=== PATIENT | female | born 1940 | race Caucasian/White ===

== ENCOUNTER → 2021-05-07 12:41 | Outpatient (CLI) | payer MEDICARE, OTHER, SELFPAY ==
--- NOTE | 2021-05-07 13:00 | VDUE_ITS ---
Reason For Study: Pre op testing Right Arm Left Arm Right Cephalic Vein at the wrist measures Left Cephalic Vein at the wrist measures 0.15 x 0.15 cm. 0.13 x 0.13 cm. Right Cephalic Vein in the forearm measures Left Cephalic Vein in the forearm measures 0.17 x 0.17 cm. 0.25 x 0.24 cm. Right Cephalic Vein below antecub measures Left Cephalic Vein below antecub measures 0.11 x 0.11 cm. 0.18 x 0.17 cm. Right Cephalic Vein above antecub measures Left Cephalic below antecube branch, 0.16 x 0.18 x 0.18 cm. 0.16 cm. Right Cephalic below antecube branch, 0.16 x Left Cephalic Vein above antecub measures 0.17 cm. 0.23 x 0.23 cm. Right Cephalic above antecube branch, 0.14 x Left Cephalic Vein at mid bicep measures 0.14 cm. 0.22 x 0.22 cm. Right Cephalic Vein mid bicep measures 0.13 Left Cephalic Vein at the shoulder measures x 0.13 cm. 0.23 x 0.24 cm. Right Cephalic Vein at the shoulder measures Basilic vein at origin measures 0.45 x 0.46 0.14 x 0.14 cm. cm. Right Basilic Vein at the origin measures Basilic vein at bicep measures 0.40 x 0.41 0.50 x 0.49 cm. cm. Right Basilic Vein mid bicep measures 0.51 x Basilic vein above antecub measures 0.48 x 0.52 cm. 0.49 cm. Right Basilic Vein above antecub measures Left Brachial artery measures 0.43 x 0.43 cm 0.46 x 0.49 cm. with a velocity of 117.6 cm/sec. Right Brachial artery measures 0.42 x 0.42 Left Radial artery measures 0.25 x 0.25 cm cm with a velocity of 101.3 cm/sec. with a velocity of 119.5 cm/sec. Right Radial artery measures 0.29 x 0.29 cm with a velocity of 77.1 cm/sec. VL/Saphenous Vein Mapping, Bilat Interpretation Summary Patent and compressible bilateral upper extremity cephalic and basilic veins wi th dimensions as noted. Cephalic vein diameters bilaterally throughout appears small Bilateral upper arm basilic veins appear adequate Bilateral radial and brachial artery diameter and flow appear normal Ordering Physician: Gilles Jules Referring Physician: Nick Ordoñez Performed By: Imani Bailey RVT ?
== END ==
PROVIDERS: PCP Internal Medicine; Referring Provider Surgery; Visit Provider Surgery
DX: Z01.818 Encounter for other preprocedural examination (principal); N18.4 Chronic kidney disease, stage 4 (severe)
CPT/HCPCS: 93970; 93985

== ENCOUNTER 2021-06-25 06:31 | Day surgery (SDC) | payer MEDICARE, OTHER, SELFPAY ==
[2021-06-25] VITALS (9 sets, daily range): BP systolic 137–172; BP diastolic 46–68; PULSE 84–93; RESP 14–18; TEMP 35.8–37.6; O2SAT 91–140; BMI 26.2
--- NOTE | 2021-06-25 06:35 | PCM.HP.BLA ---
History and Physical Date of Admission: 06/25/21 Intake Visit Reasons: FISTULA, VM 05/07 Chief Complaint: fistula consult Healthcare Insurance Sales Agent Required: No Is patient in pain?: No Allergies atorvastatin [From Lipitor] Allergy (Mild, Verified 06/16/21 14:58) Other Penicillins Allergy (Mild, Verified 06/16/21 14:58) Rash sacubitril [From Entresto] Allergy (Mild, Verified 06/16/21 14:58) Other Sulfa (Sulfonamide Antibiotics) Allergy (Mild, Verified 06/16/21 14:58) Vomiting valsartan [From Entresto] Allergy (Mild, Verified 06/16/21 14:58) Other Medications allopurinol 100 mg tablet tablet PO 06/16/21 [History Confirmed 06/16/21] aspirin 81 mg tablet,delayed release 81 mg PO DAILY 06/16/21 [History Confirmed 06/16/21] citalopram 20 mg tablet tablet PO 06/16/21 [History Confirmed 06/16/21] clotrimazole-betamethasone 1 %-0.05 % topical cream gm TOPICAL 06/16/21 [History Confirmed 06/16/21] ergocalciferol (vitamin D2) 1,250 mcg (50,000 unit) capsule cap PO 06/16/21 [History Confirmed 06/16/21] gabapentin 300 mg capsule cap PO 06/16/21 [History Confirmed 06/16/21] hydralazine 50 mg tablet tablet PO 06/16/21 [History Confirmed 06/16/21] insulin glargine 100 unit/mL subcutaneous solution ml SUBCUT 06/16/21 [History Confirmed 06/16/21] isosorbide mononitrate 60 mg tablet,extended release 24 hr tablet PO 06/16/21 [History Confirmed 06/16/21] loperamide 2 mg capsule cap PO 06/16/21 [History Confirmed 06/16/21] melatonin 10 mg capsule 10 mg PO HS PRN 06/16/21 [History Confirmed 06/16/21] metoprolol succinate 50 mg tablet,extended release 24 hr tablet PO 06/16/21 [History Confirmed 06/16/21] omeprazole 20 mg capsule,delayed release cap PO 06/16/21 [History Confirmed 06/16/21] tramadol 50 mg tablet tablet PO 06/16/21 [History Confirmed 06/16/21] vitamin B complex-vitamin C-folic acid 0.8 mg tablet 1 tab PO DAILY 06/16/21 [History Confirmed 06/16/21] PFSH Medical History Breast cancer Diabetes End stage renal disease Gout Heart disease High cholesterol HTN (hypertension) Surgical History History of ankle surgery History of open heart surgery S/P lumpectomy, right breast Status post replacement of right shoulder joint Social History Smoking Status: Former smoker alcohol intake: never HPI HPI HPI: CLARISSE HA, is a 81 F who presents to the office today for surgical consultation regarding placement of arteriovenous hemodialysis fistula. The patient is referred by and a written copy my surgical consult recommendations will return to him. The patient currently is being dialyzed via tunneled right internal jugular dialysis catheters. She is right arm dominant. She has had previous hospitalizations for heart surgery coronary bypass surgery. May 07, 2021 Reason For Study: Pre op testing Right Arm Left Arm Right Cephalic Vein at the wrist measures Left Cephalic Vein at the wrist measures 0.15 x 0.15 cm. 0.13 x 0.13 cm. Right Cephalic Vein in the forearm measures Left Cephalic Vein in the forearm measures 0.17 x 0.17 cm. 0.25 x 0.24 cm. Right Cephalic Vein below antecub measures Left Cephalic Vein below antecub measures 0.11 x 0.11 cm. 0.18 x 0.17 cm. Right Cephalic Vein above antecub measures Left Cephalic below antecube branch, 0.16 x 0.18 x 0.18 cm. 0 .16 cm. Right Cephalic below antecube branch, 0.16 x Left Cephalic Vein above antecub measures 0.17 cm. 0.23 x 0.23 cm. Right Cephalic above antecube branch, 0.14 x Left Cephalic Vein at mid bicep measures 0.14 cm. 0.22 x 0.22 cm. Right Cephalic Vein mid bicep measures 0.13 Left Cephalic Vein at the shoulder measures x 0.13 cm. 0.23 x 0.24 cm. Right Cephalic Vein at the shoulder measures Basilic vein at origin measures 0.45 x 0.46 0.14 x 0.14 cm. cm. Right Basilic Vein at the origin measures Basilic vein at bicep measures 0.40 x 0.41 0.50 x 0.49 cm. cm. Right Basilic Vein mid bicep measures 0.51 x Basilic vein above antecub measures 0.48 x 0.52 cm. 0.49 cm. Right Basilic Vein above antecub measures Left Brachial artery measures 0.43 x 0.43 cm 0.46 x 0.49 cm. with a velocity of 117.6 cm/sec. Right Brachial artery measures 0.42 x 0.42 Left Radial artery measures 0.25 x 0.25 cm cm with a velocity of 101.3 cm/sec. with a velocity of 119.5 cm/sec. Right Radial artery measures 0.29 x 0.29 cm with a velocity of 77.1 cm/sec. VL/Saphenous Vein Mapping, Bilat Interpretation Summary Patent and compressible bilateral upper extremity cephalic and basilic veins with dimensions as noted. Cephalic vein diameters bilaterally throughout appears small Bilateral upper arm basilic veins appear adequate Bilateral radial and brachial artery diameter and flow appear normal Ordering Physician: Gilles Jules Referring Physician: Nick Ordoñez Performed By: Imani Bailey RVT ? 05/07/21 1456Date Gilles Jules MD ROS General General: Yes breast cancer; No weight change, appetite, fatigue, colon cancer or weakness HEENT HEENT: Yes eye injury and eye surgery; No difficulty swallowing, swollen glands or hoarseness Endo Endocrine: Yes diabetes mellitus; No thyroid disease, thyroid cancer, Hair loss, heat intolerance or cold intolerance Skin Skin: No rash or changing moles Breast Breast: No left breast lump, right breast lump, nipple discharge, breast pain, abnormal mammogram, abnormal US or breast enlargement Musc Musculoskeletal: Yes arthritis and gout; No back problems, rheumatoid arthritis or joint pain Cardio Cardiovascular: Yes pacemaker, heart disease, high blood pressure, heart attack and heart stent; No murmur, atrial fibrillation, palpitations, shortness of breat with exertion or chest pain Psych Psychiatric: No depression, anxiety or hearing voices Resp Respiratory: No shortness of breath, No sleep apnea, No cough, No COPD, No asthma, No emphysema and No wheezing Gastro Gastrointestinal: No abdominal pain, No nausea or vomiting, Yes diarrhea, No constipation, No blood in stool, No acid reflux, No hemorrhoids, No ulcers, No gallbladder problem and No black,tarry stools Jeremias Hematologic: No blood thinners, No blood disorders, No bleeding, Yes anemia and No blood clots Neuro Neurologic: No system reviewed and no additional complaints, except as documented, No as per HPI, No abnormal gait, No abnormal hearing, No abnormal movements, No abnormal speech, No behavioral changes, No burning sensations, No confusion, No convulsions, No disequilibrium, No dizziness, No localized weakness, No frequent falls, No headache(s), No lack of coordination, No loss of vision, No memory loss, Yes numbness, No other visual disturbances, No radicular pain, No restless legs, No sensory deficit, No syncope, Yes tingling, No tremor(s), No weakness and No other Exam Const General: cooperative, healthy appearing and comfortable Nutritional Appearance: average body habitus Orientation: alert and awake [facility] Head: normal to inspection Eyes General: appearance normal, both eyes and all related structures Neck Neck: normal visual inspection Chest Other: Right internal jugular tunneled dialysis catheters in place Resp Effort & Inspection: normal respiratory effort Auscultation: clear to auscultation bilaterally Cardio Rate: regular rate GI Inspection: normal to inspection Palpation: soft Musc Cervical Spine: normal cervical lordosis Skin Other: Multiple areas of ecchymosis Neuro General: patient alert and patient oriented x3 Extrem Other: Left upper extremity diminutive cephalic vein throughout. 3+ left radial pulse 3+ left brachial pulse. Ultrasound inspection demonstrates a patent and compressible left upper arm basilic vein. Psych Thought Content: normal Assessment and Plan Assessment and Plan (1) Chronic kidney disease, stage V: Status: Chronic Plan Details Additional Comments: I recommended the patient a stage I left upper arm brachiobasilic arteriovenous hemodialysis fistula creation. I described the technique, benefit, risk, alternatives. She has had an opportunity to ask and have questions answered. We will schedule and expedite her care. She is aware that a stage II transposition will be additionally required in the future. I appreciate the opportunity of assisting with her surgical care Copy: Dr. Collins Jules M.D., F.A.C.S. I have re-examined the patient. There are no clinical changes since date of exam. Gilles Jules M.D., F.A.C.S.
--- NOTE | 2021-06-25 06:36 | EX.PCM.DISCH ---
Discharge Instructions Procedure Fistula Diet Discharge Diet: Renal Diet Activity Discharge Activity: May Not Drive (for 2-3 days or while taking narcotic pain medications.), May Shower and May Take a Tub Bath (in 5 days.) Lifting Restrictions: 5 pounds Keep extremity elevated above heart level: - (Keep arm elevated above the heart level for 3 days.) Dressing / Incision Call your doctor if your incision/area has: Continuous Slow Oozing, Sudden Increased Bleeding (apply pressure and call your doctor.), Increased Pain/ Swelling, Increased Redness and Foul Smelling Discharge Call your doctor if you observe: Fever of 101 or Higher Suture Line Care: Avoid Pulling/Pushing and Avoid Pinching/Bending Cleanse incision/area with: Keep Dressing Clean & Dry Additional Dressing/Incision Instructions:: Change or remove dressing in one day. May protect with a gauze bandaid. Follow Up Care Please Follow Up With: Gilles Jules MD When: Call [phone] to make an appointment for suture removal and follow up in 1 week. Test Results: Test results from this visit will be discussed in further detail at your follow-up appointment, if applicable. Discharge Plan Admission Attending Provider: Gilles Jules Primary Care Provider: Nick Ordoñez Discharge Orders/Prescriptions Prescriptions: No Action allopurinol 100 mg tablet 100 mg PO DAILY RF: 0 gabapentin 300 mg capsule 300 mg PO QHS RF: 0 ergocalciferol (vitamin D2) 1,250 mcg (50,000 unit) capsule 50,000 unit PO WE RF: 0 omeprazole 20 mg capsule,delayed release(DR/EC) 20 mg PO 0800 RF: 0 hydralazine 50 mg tablet 50 mg PO TID RF: 0 isosorbide mononitrate 60 mg tablet extended release 24 hr 60 mg PO DAILY RF: 0 citalopram 20 mg tablet 20 mg PO DAILY RF: 0 metoprolol succinate 50 mg tablet extended release 24 hr 50 mg PO 0800 RF: 0 tramadol 50 mg tablet 50 mg PO QHS RF: 0 loperamide 2 mg capsule 2 mg PO PRN PRN (Reason: Diarrhea) RF: 0 Lantus U-100 Insulin 100 unit/mL solution 20 unit subcut QHS RF: 0 melatonin 10 mg capsule 10 mg PO HS RF: 0 Cheli-Jud 0.8 mg tablet 1 tab PO DAILY RF: 0 aspirin 81 mg tablet,delayed release (DR/EC) 81 mg PO QODAY RF: 0 acetaminophen 325 mg Tablet 325 mg PO BID RF: 0 amlodipine [Norvasc] 5 mg Tablet 5 mg PO DAILY RF: 0 ascorbic acid (vitamin C) [Vitamin C] 500 mg Tablet 500 mg PO TID RF: 0 magnesium 250 mg Tablet 250 mg PO BID RF: 0 [place] Caps 1 mg Capsule 1 cap PO 0800 RF: 0 insulin lispro [Humalog Pen] 100 unit/mL Insulin Pen 5 unit SUBCUT TID RF: 0 rosuvastatin 40 mg Tablet 40 mg PO QHS RF: 0 Airborne Gummy 250-11.66 mg Tablet,Chewable 1 tab PO 0800 RF: 0
[2021-06-25] MEDS: 0.9% Normal Saline 1,000 ML 15 ML IV (07:24)
[2021-06-25 07:36] LABS: Hematocrit 42.5 % (37-47); Hemoglobin 12.5 g/dL (12.0-15.0); Mean Corp Hgb Conc 29.4 g/dL (32-36); Mean Corpuscular Volume 101.9 fL (81-99); Mean Platelet Vol. 9.3 fl (6.2-12.0); POSITIVE MORPHOLOGY YES; Platelet Count 197 K/mm3 (150-450); RBC Distribution Width CV 17.9 % (11.6-14.6); RBC Distribution Width SD 67.6 fl (35.1-43.9); Red Blood Count 4.17 M/mm3 (4.2-5.4)
[2021-06-25 07:41] LABS: Bedside Glucose 99 mg/dL (70-110)
[2021-06-25 07:41] LABS: Scan Indicated on CBC? Y/N YES- FLAGS NOTED
[2021-06-25 08:00] LABS: Differential Comment SCANNED
[2021-06-25] MEDS: Lidocaine 1% (20 ml mdv) 20 ML Vial (09:14)
[2021-06-25] MEDS: Bupivacaine Mpf 0.5% 30 ML VIAL (09:14)
--- NOTE | 2021-06-25 09:14 | PCM.OPRPT ---
Problems Associated Problem List Diagnoses (1) Chronic kidney disease, stage V: Report of Operation Date of Procedure: 06/25/21 Pre-Operative Diagnosis: Stage V chronic renal insufficiency Post-Operative Diagnosis: Same Surgery/Procedure Performed:: Stage I left upper extremity basilic vein to brachial artery arteriovenous hemodialysis fistula creation Description of Surgical Findings:: Timeout informed consent was obtained. 81-year-old female was taken to the operating placed upon the table underwent monitored anesthesia care. Clean procedure. The left upper extremity sterilely prepped and draped. Ultrasound mapping had been performed. 1% lidocaine mixed 50-50 with 0.5% Marcaine was used as a local anesthetic. A total of 9 cc was used. Local was instilled an oblique incision was made in the left antecubital space sharp and blunt dissection was used to identify the basilic vein it was dissected free sharp and blunt dissection was used to identify the brachial artery circumferential control was obtained. The patient received 6000 units of heparin intravenously. The basilic vein was ligated distally with 2 hemoclips. The vein was spatulated. Peripheral vascular clamps were placed on the brachial artery and 11 blade was used to make an arteriotomy which was extended with Miguel scissors. A end-to-side venous to arterial anastomosis was created with a running 7-0 Prolene. A couple repair sutures after the patient required of the 7-0 Prolene. There was wonderful flow noted. The patient was noted to have a very viable hand. It is of note that there was a branch of the basilic vein which I did tie off with a 4-0 Vicryl ligature to improve antegrade flow in the vein. The wound was closed with a deep layer of interrupted 3-0 Vicryl. Skin edges approximated running septic or 4-0 Monocryl. Steri-Strips Telfa OpSite dressings applied. Sponge and instrument and needle counts were reported the surgeon to be correct. Specimens none. Drains none. Blood loss minimal. The patient was taken to the recovery area in satisfactory addition without apparent complication Gilles Jules M.D., F.A.C.S. Surgeon: Gilles Jules Type of Anesthesia: Local MAC Anesthesiologist: Shakeel Tamez
[2021-06-25] MEDS: Heparin Injection (Vial) 5,000 UNIT/ML VIAL 5000 UNIT (09:20)
== END 2021-06-25 23:59 | disposition home or self-care (01) ==
LOC: SDC 06:31 → AC 06:32
PROVIDERS: PCP Internal Medicine; Referring Provider Internal Medicine; Visit Provider Surgery
DX: I12.0 Hypertensive chronic kidney disease with stage 5 chronic kidney disease or end stage renal disease (principal); Z99.2 Dependence on renal dialysis; J44.9 Chronic obstructive pulmonary disease, unspecified; I27.20 Pulmonary hypertension, unspecified; E11.22 Type 2 diabetes mellitus with diabetic chronic kidney disease; N18.5 Chronic kidney disease, stage 5; Z79.4 Long term (current) use of insulin; D63.1 Anemia in chronic kidney disease; I51.7 Cardiomegaly; I25.2 Old myocardial infarction; E78.00 Pure hypercholesterolemia, unspecified; K21.9 Gastro-esophageal reflux disease without esophagitis; Z95.1 Presence of aortocoronary bypass graft; Z79.82 Long term (current) use of aspirin; Z86.73 Personal history of transient ischemic attack (TIA), and cerebral infarction without residual deficits; Z79.899 Other long term (current) drug therapy; Z87.891 Personal history of nicotine dependence
CPT/HCPCS: 01844; 82962; 85027; 87426; J7030; J2405

== ENCOUNTER 2021-07-14 13:16 | Outpatient (CLI) | payer MEDICARE, OTHER, SELFPAY ==
[2021-07-14 13:47] LABS: Absolute Lymphocyte Count 0.52 X10^3/uL (0.83-4.51); Absolute Neutrophil Count 9.5 X10^3/uL (2.0-7.7); Basophil# 0.03 X10^3/uL; Basophil% 0.3 % (0-1); Eosinophil# 0.43 X10^3/uL; Eosinophils% 3.8 % (0-5); Hematocrit 20.8 % (37-47); Hemoglobin 6.1 g/dL (12.0-15.0); Lymphocyte # 0.52 X10^3/ul (0.83-4.51); Lymphocyte % 4.6 % (19-41); Mean Corp Hgb Conc 29.3 g/dL (32-36); Mean Corpuscular Hgb 31.3 pg (27.0-32.0); Mean Corpuscular Volume 106.7 fL (81-99); Mean Platelet Vol. 9.4 fl (6.2-12.0); Monocyte# 0.83 X10^3/uL; Monocyte% 7.3 % (0-10); NRBC Flagged by Analyzer 0 % (0-5); Neutrophil # 9.52 X10^3/uL (2.7-7.7); Neutrophil % 83.6 % (47-70); POSITIVE DIFFERENTIAL YES; POSITIVE MORPHOLOGY YES; Platelet Count 173 K/mm3 (150-450); RBC Distribution Width CV 22.6 % (11.6-14.6); RBC Distribution Width SD 88.2 fl (35.1-43.9); Red Blood Count 1.95 M/mm3 (4.2-5.4); White Blood Count 11.4 K/mm3 (4.4-11.0)
[2021-07-14 13:48] LABS: Differential Indicated SCAN CRITERIA MET
[2021-07-14 14:33] LABS: Anisocytosis 1+
== END 2021-07-14 23:59 | disposition short-term general hospital (02) ==
LOC: PAVLAB 13:18
PROVIDERS: Physician Assistant; PCP Internal Medicine; Referring Provider Surgery; Visit Provider Surgery
DX: N18.5 Chronic kidney disease, stage 5 (principal)
CPT/HCPCS: 36415; 85025

== ENCOUNTER 2021-08-04 13:04 | Outpatient (CLI) | payer MEDICARE, OTHER, SELFPAY ==
--- NOTE | 2021-08-04 13:45 | RAD_ITS ---
STUDY: X-RAY - PELVIS AND RIGHT HIP REASON FOR EXAM: Female, 81 years old. ACUTE PAIN following a fall. TECHNIQUE: 3 views of the pelvis and hip. COMPARISON: None. FINDINGS: Moderate amount of fecal material is seen in the colon. There are atherosclerotic vascular calcifications of the pelvic arteries. Normal bilateral iliac wings, sacroiliac joints and visualized sacrum. Normal bilateral superior and inferior pubic rami. Normal pubic symphysis. Normal bilateral ischial tuberosities. Normal visualized femoral head. Normal acetabulum. There is mild articular joint space narrowing of the hip. RAD/HIP, UNI W/ Pelvis 2-3 Views IMPRESSION: Degenerative changes of the right hip joint. No acute fracture is seen. Electronically Signed: Kirk Noe MD at 14:34 EST ,
== END 2021-08-04 23:59 | disposition home or self-care (01) ==
PROVIDERS: PCP Internal Medicine; Referring Provider Surgery; Visit Provider Surgery
DX: M25.551 Pain in right hip (principal)
CPT/HCPCS: 73502

== ENCOUNTER 2021-08-15 09:41 | Day surgery (SDC) | payer MEDICARE, OTHER, SELFPAY ==
--- NOTE | 2021-08-15 | COLBX_PTH ---
PATIENT: CLARISSE HA LOC: EN U#:[id number] AGE/SX: 81/F ROOM: RE08/15/[address]: Dr. Gilles Jules MD : 1940 BED: DIS: 08/15/2021 SPEC #: [id number] RECD: 08/15/21 13:15 STATUS: BRO KIDD #: [id number] RENALDO: 08/15/21 00:[address]: Gilles Jules DEPT: SURGICAL PATHOLOGY RECD BY: Dago Jacobson ENTERED: 08/15/21 13:17 SP TYPE: COLON BX OTHR DR: Dr. Nick Ordoñez MD Tissues: A - Duodenum, NOS B - Gastric mucous membrane C - Stomach, NOS D - Esophageal mucous membrane E - Transverse colon F - Descending colon G - Sigmoid colon biopsy H - Rectum, NOS Procedures: Special Stain Group II Surgery Specimen Level IV Alcian Blue/PAS (control) HEADER OPERATION: Colonoscopy, EGD ([facility] [place]) PRE-OP DIAGNOSIS: Chronic anemia TISSUE SUBMITTED: A - Duodenum biopsy, B - Antrum biopsy for H. pylori and path, C - Biopsy greater curvature of stomach, D - Distal esophagus biopsy, E - Proximal transverse polyp, F - Descending colon polyp, G - Proximal sigmoid polyp, H - Rectum biopsy MICROSCOPIC DIAGNOSIS A. Duodenum, biopsy: A fragment of duodenal mucosa, no pathologic diagnosis. B. Antrum biopsy: Mild gastritis. See microscopic description and comment. C. Greater curvature of stomach, biopsy: Minimal gastritis. See microscopic description. D. Distal esophagus, biopsy: A fragment of gastroesophageal mucosa with moderate chronic inflammation. Intestinal metaplasia (goblet cell metaplasia) not identified. See comment. E. Proximal transverse colon polyp, biopsy: Fragments of tubular adenoma. F. Descending colon polyp, biopsy: Fragments of fecal material. See comment. G. Proximal sigmoid polyp, biopsy: Fragments of tubular adenoma. H. Rectum, biopsy: Tubular adenoma. SJ:fred 08/18/2021 COMMENT B. The results of immunohistochemistry for Helicobacter pylori will be reported separately ([id number]). D. Alcian blue/PAS stain with matched control is used in the evaluation of the specimen. F. Colonic mucosal tissue is not identified. MICROSCOPIC DESCRIPTION Slides are reviewed. B. The specimen shows fragments of gastric mucosa with chronic inflammatory cell infiltrates in the lamina propria consisting of lymphocytes and plasma cells, consistent with mild chronic gastritis. C. The specimen shows fragments of gastric mucosa with chronic inflammatory cell infiltrates in the lamina propria consisting of lymphocytes and plasma cells, consistent with minimal chronic gastritis. GROSS DESCRIPTION A - Received in fixative is one container labeled with the patient's name and designated biopsy duodenum. The specimen consists of one irregular fragment of light estrada soft tissue that measures 0.3 x 0.3 x 0.1 cm. The specimen is totally submitted in one cassette. B - Received in fixative is one container labeled with the patient's name and designated biopsy antrum. The specimen consists of one irregular fragment of light estrada soft tissue that measures 0.3 x 0.3 x 0.1 cm. The specimen is totally submitted in one cassette. C - Received in fixative is one container labeled with the patient's name and designated biopsy greater curvature of stomach. The specimen consists of one irregular fragment of light estrada soft tissue that measures 0.3 x 0.3 x 0.1 cm. The specimen is totally submitted in one cassette. D - Received in fixative is one container labeled with the patient's name and designated distal esophagus. The specimen consists of one irregular fragment of light estrada soft tissue that measures 0.4 x 0.3 x 0.1 cm. The specimen is totally submitted in one cassette. E - Received in fixative is one container labeled with the patient's name and designated proximal transverse polyp. The specimen consists of two irregular fragments of light estrada soft tissue that in aggregate measure 0.8 x 0.3 x 0.1 cm. The specimen is totally submitted in one cassette. F - Received in fixative is one container labeled with the patient's name and designated descending colon polyp. The specimen consists of multiple irregular fragments consisting of fecal material mixed with possible fragments of soft tissue that in aggregate measure 1.5 x 0.2 x 0.1 cm. The specimen is totally submitted in one cassette. G - Received in fixative is one container labeled with the patient's name and designated proximal sigmoid polyp. The specimen consists of two irregular fragments of light estrada soft tissue that in aggregate measure 1 x 0.4 x 0.1 cm. The specimen is totally submitted in one cassette. H - Received in fixative is one container labeled with the patient's name and designated rectum polyp. The specimen consists of one irregular fragment of light estrada soft tissue that measures 0.4 x 0.3 x 0.2 cm. The specimen is totally submitted in one cassette. / SJ:rg 08/15/2021 TC:1 CPT: 50165 x8, 19076
--- NOTE | 2021-08-15 09:51 | PCM.HP.BLA ---
History and Physical Date of Admission: 08/15/21 Intake Visit Reasons: discuss endos--anemia Chief Complaint: discuss endos Priming Mixture Carrier Required: No Is patient in pain?: No Allergies atorvastatin [From Lipitor] Allergy (Mild, Verified 08/04/21 12:25) Other Penicillins Allergy (Mild, Verified 08/04/21 12:25) Rash sacubitril [From Entresto] Allergy (Mild, Verified 08/04/21 12:25) Other Sulfa (Sulfonamide Antibiotics) Allergy (Mild, Verified 08/04/21 12:25) Vomiting valsartan [From Entresto] Allergy (Mild, Verified 08/04/21 12:25) Other Medications allopurinol 100 mg tablet 100 mg PO DAILY 06/16/21 [History Confirmed 08/04/21] aspirin 81 mg tablet,delayed release 81 mg PO QODAY 06/16/21 [History Confirmed 08/04/21] citalopram 20 mg tablet 20 mg PO DAILY 06/16/21 [History Confirmed 08/04/21] ergocalciferol (vitamin D2) 1,250 mcg (50,000 unit) capsule 50,000 unit PO WE 06/16/21 [History Confirmed 08/04/21] gabapentin 300 mg capsule 300 mg PO QHS 06/16/21 [History Confirmed 08/04/21] hydralazine 50 mg tablet 50 mg PO TID 06/16/21 [History Confirmed 08/04/21] insulin glargine 100 unit/mL subcutaneous solution 20 unit SUBCUT QHS 06/16/21 [History Confirmed 08/04/21] isosorbide mononitrate 60 mg tablet,extended release 24 hr 60 mg PO DAILY 06/16/21 [History Confirmed 08/04/21] loperamide 2 mg capsule 2 mg PO PRN PRN 06/16/21 [History Confirmed 08/04/21] melatonin 10 mg capsule 10 mg PO HS 06/16/21 [History Confirmed 08/04/21] metoprolol succinate 50 mg tablet,extended release 24 hr 50 mg PO 0800 06/16/21 [History Confirmed 08/04/21] omeprazole 20 mg capsule,delayed release 20 mg PO 0800 06/16/21 [History Confirmed 08/04/21] tramadol 50 mg tablet 50 mg PO QHS 06/16/21 [History Confirmed 08/04/21] vitamin B complex-vitamin C-folic acid 0.8 mg tablet 1 tab PO DAILY 06/16/21 [History Confirmed 08/04/21] Airborne Gummy 1 tab PO 0800 06/19/21 [History Confirmed 08/04/21] Bacova Caps 1 cap PO 0800 06/19/21 [History Confirmed 08/04/21] acetaminophen 325 mg PO BID 06/19/21 [History Confirmed 08/04/21] amlodipine [Norvasc] 5 mg PO DAILY 06/19/21 [History Confirmed 08/04/21] ascorbic acid (vitamin C) [Vitamin C] 500 mg PO TID 06/19/21 [History Confirmed 08/04/21] insulin lispro 5 unit SUBCUT TID 06/19/21 [History Confirmed 08/04/21] magnesium 250 mg PO BID 06/19/21 [History Confirmed 08/04/21] rosuvastatin 40 mg PO QHS 06/19/21 [History Confirmed 08/04/21] Is last menstrual period known: No Post menopausal: Yes Patient : No PFSH Medical History Anemia Breast cancer Cancer Cardiology follow-up encounter Cellulitis COPD (chronic obstructive pulmonary disease) Depression End stage renal disease Excessive bleeding Former smoker Gastric reflux Gout Heart disease High cholesterol History of CHF (congestive heart failure) History of edema History of heart attack History of renal dialysis History of stress test HTN (hypertension) Insulin dependent diabetes mellitus Leg cramps TIA (transient ischemic attack) Walker as ambulation aid Wears dentures Wears glasses Surgical History History of ankle surgery History of arteriovenostomy for renal dialysis (~06/2021) History of cataract extraction History of colonoscopy History of eye surgery History of open heart surgery S/P lumpectomy, right breast Status post replacement of right shoulder joint Social History Smoking Status: Former smoker alcohol intake: never HPI HPI HPI: CLARISSE HA, is a 81 F who presents to the office today for surgical evaluation of anemia. On June 25, 2021 I created a stage I left extremity brachial to basilic arteriovenous hemodialysis fistula. Unfortunately she has been detected to have a anemia as severe as 6.1 with hematocrit of 20.8 on July 14, 2021. Etiology not clear. She was scheduled for a previous office appointment with me and failed to show. She is now rescheduled for an appointment to discuss her anemia and treatment plans prior to trying to proceed with stage II transposition. In addition to her other chronic medications she is on aspirin therapy 81 mg daily. She is on omeprazole 20 mg daily. She does take routine tramadol. She has required 2 unit blood transfusion. In addition to this apparently just recently she started up at home she states she turned it for then fell onto her right hip. She lives in assisted living. She refused treatment. She states that is quite sore to touch and somewhat difficult for her to walk. She has not had imaging done of the right hip. Finally she has a stage I left upper extremity basilic vein to brachial artery arteriovenous hemodialysis fistula created for her on June 25, 2021. Long ago we were wanting to do a transposition. Because of her other medical issues particularly her anemia we have been unable to proceed. Her most recent laboratory was obtained at [facility] in [facility] on July 24, 2021 demonstrating a white blood cell count of 8.2 with hemoglobin 8.5 and hematocrit of 26.9 and a platelet count of 189,000. The patient states that she has had endoscopy before however arm most recent note is possibly dating back to as far as 2008. She states that her previous attempt in the past was made to evaluate her for anemia but no source was found. ROS General General: Yes breast cancer; No weight change, appetite, fatigue, colon cancer or weakness HEENT HEENT: Yes eye injury and eye surgery; No difficulty swallowing, swollen glands or hoarseness Endo Endocrine: Yes diabetes mellitus; No thyroid disease, thyroid cancer, Hair loss, heat intolerance or cold intolerance Skin Skin: No rash or changing moles Breast Breast: No left breast lump, right breast lump, nipple discharge, breast pain, abnormal mammogram, abnormal US or breast enlargement Musc Musculoskeletal: Yes arthritis and gout; No back problems, rheumatoid arthritis or joint pain Cardio Cardiovascular: Yes pacemaker, heart disease, high blood pressure, heart attack and heart stent; No murmur, atrial fibrillation, palpitations, shortness of breat with exertion or chest pain Psych Psychiatric: No depression, anxiety or hearing voices Resp Respiratory: No shortness of breath, No sleep apnea, No cough, No COPD, No asthma, No emphysema and No wheezing Gastro Gastrointestinal: No abdominal pain, No nausea or vomiting, Yes diarrhea, No constipation, No blood in stool, No acid reflux, No hemorrhoids, No ulcers, No gallbladder problem and No black,tarry stools Jeremias Hematologic: No blood thinners, No blood disorders, No bleeding, Yes anemia and No blood clots Neuro Neurologic: No system reviewed and no additional complaints, except as documented, No as per HPI, No abnormal gait, No abnormal hearing, No abnormal movements, No abnormal speech, No behavioral changes, No burning sensations, No confusion, No convulsions, No disequilibrium, No dizziness, No localized weakness, No frequent falls, No headache(s), No lack of coordination, No loss of vision, No memory loss, Yes numbness, No other visual disturbances, No radicular pain, No restless legs, No sensory deficit, No syncope, Yes tingling, No tremor(s), No weakness and No other Exam Const General: cooperative and no acute distress Nutritional Appearance: overweight Orientation: alert and awake [facility] Head: normal to inspection Eyes General: appearance normal, both eyes and all related structures Neck Neck: normal visual inspection Resp Effort & Inspection: normal respiratory effort Auscultation: clear to auscultation bilaterally Cardio Rate: regular rate Rhythm: regular rhythm GI Palpation: soft and no hepatosplenomegaly Skin Other: Diffuse areas of ecchymosis bilateral upper extremities Neuro General: patient alert, patient awake and patient oriented x3 Extrem Other: Tender right lateral hip Left upper extremity with well-healed antecubital incision and a palpable pulse thrill and bruit within her stage I brachial to basilic arteriovenous analysis fistula Psych Appearance: grossly normal Assessment and Plan Assessment and Plan (1) Status post fall: Status: Acute (2) Acute right hip pain: Status: Acute (3) Chronic anemia: Status: Chronic (4) Chronic kidney disease, stage V: Status: Chronic Orders: Orders: Hip uni 4+ views with Pelvis Today Z91.81, M25.551 Plan - Dr. Gilles Jules MD: Complicated 81-year-old female. We have been unable to proceed with stage II transposition left upper arm basilic vein to brachial artery arteriovenous analysis fistula creation. Etiology of the patient's hemoglobin of 6.1 undetermined at this time. She denies any symptoms that correlate with GI blood loss but is difficult to know. She actually has not notified her primary care physician of the issues at hand. We ordered her most recent laboratory demonstrating an improvement in her hemoglobin to 8.5 albeit still lower than normal. A portion of this may be secondary to her chronic renal insufficiency. The patient fell just recently and has right hip pain. She has previously refused evaluation but now is having ongoing troubles walking. I recommended the patient the today we obtain right hip x-rays. She is aware that I do not manage this particular problem if an acute fracture is identified. I recommended the patient a combined esophagogastroduodenoscopy and colonoscopy with possible biopsy or polypectomy as indicated. I am recommending that we proceed with that prior to attempting stage II transposition of her left upper arm AV fistula. During that stage II procedure we would need to fully heparinized the patient. She has had an opportunity to ask and have questions answered. We will try to expedite and assist as noted. Copy:Nick Ordoñez MD and Dr Collins Jules M.D., F.A.C.S. I have re-examined the patient. There are no clinical changes since date of exam.
[2021-08-15 10:25] VITALS: BP 137/50; PULSE 86; RESP 18; TEMP 36.8; O2SAT 98; BMI 25.0
--- NOTE | 2021-08-15 10:47 | SUR.PREOP ---
PATIENT IS FROM AN ASSISTED LIVING. SHE UNSURE WHAT MEDICATIONS SHE TOOK THIS MORNING, BUT ASSUMES IT IS THE MEDICATION PAT TOLD HER TO TAKE. SHE DID NOT TAKE ANY INSULIN LAST EVENING.
--- NOTE | 2021-08-15 11:00 | IMM_PTH ---
PATIENT: CLARISSE HA LOC: EN U#:[id number] AGE/SX: 81/F ROOM: RE08/15/[address]: Dr. Gilles Jules MD : 1940 BED: DIS: 08/15/2021 SPEC #: [id number] RECD: 08/15/21 13:40 STATUS: BRO RESandra #: [id number] RENALDO: 08/15/21 11:[address]: Gilles Jules DEPT: IMMUNOHISTOCHEMISTRY RECD BY: Nneka Pascual ENTERED: 08/15/21 13:41 SP TYPE: IMMUNO OTHR DR: Dr. Nick Ordoñez MD Tissues: B - Stomach, NOS Procedures: H Pylori (initial) PHYSICIAN & INSTITUTION [place] [address] SPECIMEN INFORMATION: Tissue Source: B ? Antrum Clinical Info: Chronic anemia Specimen Number: [id number] CPT code: 59882 METHODOLOGY: Deparaffinized sections of prefer/formalin-fixed tissue or PAP/DQ stained slides are incubated with monoclonal/polyclonal antibodies/oligonucleotide probes. Localization is made via biotin free immunoperoxidase method. Appropriate controls are performed and reacted as expected. Results on target cell population are indicated in the following table: RESULTS: ANTIBODY / CLONE RESULT Block B H Pylori (polyclonal) negative These tests were developed and their performance characteristics determined by [facility]. They may not have been cleared or approved by the U.S. Food and Drug Administration. The FDA has determined that such clearance or approval is not necessary. INTERPRETATION: B. Antrum biopsy: Negative for Helicobacter pylori organisms. SJ:fred 08/18/2021
--- NOTE | 2021-08-15 11:37 | OP.EGD_ITS ---
Patient Name: Sunitha Olivera Procedure Date: 08/15/2021 11:15 AM Date of : 1940 Age: 81 Procedure: Upper GI endoscopy Indications: Iron deficiency anemia secondary to chronic blood loss Providers: Gilles Jules MD Referring MD: Nick Ordoñez Medicines: See the Anesthesia note for documentation of the administered medications Complications: No immediate complications. Procedure: Pre-Anesthesia Assessment: - Prior to the procedure, a History and Physical was performed, and patient medications and allergies were reviewed. The patient's tolerance of previous anesthesia was also reviewed. The risks and benefits of the procedure and the sedation options and risks were discussed with the patient. All questions were answered, and informed consent was obtained. Prior Anticoagulants: The patient has taken no previous anticoagulant or antiplatelet agents. ASA Grade Assessment: III - A patient with severe systemic disease. After reviewing the risks and benefits, the patient was deemed in satisfactory condition to undergo the procedure. After obtaining informed consent, the endoscope was passed under direct vision. Throughout the procedure, the patient's blood pressure, pulse, and oxygen saturations were monitored continuously. The gastroscope was introduced through the mouth, and advanced to the second part of duodenum. The upper GI endoscopy was accomplished without difficulty. The patient tolerated the procedure well. Scope In: 11:27:26 AM Scope Out: 11:32:25 AM Total Procedure Duration Time 0 hours 4 minutes 59 seconds Findings: Esophagitis with no bleeding was found 38 cm from the incisors. Biopsies were taken with a cold forceps for histology. Patchy mildly erythematous mucosa without bleeding was found on the greater curvature of the stomach and in the gastric antrum. Biopsies were taken with a cold forceps for histology. Diffuse mild mucosal variance was found in the duodenal bulb and in the first portion of the duodenum. Biopsies were taken with a cold forceps for histology. Impression: - Reflux esophagitis. Biopsied. - Erythematous mucosa in the greater curvature and antrum. Biopsied. - Mucosal variant in the duodenum. Biopsied. Recommendation: - Discharge patient to home. - Resume previous diet. - Continue present medications. - Telephone my office for pathology results in 1 week. Procedure Code(s): --- Professional --- 99840, Esophagogastroduodenoscopy, flexible, transoral; with biopsy, single or multiple Diagnosis Code(s): --- Professional --- K21.0, Gastro-esophageal reflux disease with esophagitis K31.89, Other diseases of stomach and duodenum D50.0, Iron deficiency anemia secondary to blood loss (chronic) CPT copyright 2017 [employer]. All rights reserved. The codes documented in this report are preliminary and upon sign language interpreter review may be revised to meet current compliance requirements. Gilles Jules MD 08/15/2021 11:37:03 AM This report has been signed electronically. Number of Addenda: 0 Note Initiated On: 08/15/2021 11:15 AM
--- NOTE | 2021-08-15 11:37 | OP.CCLET_ITS ---
08/15/2021 Nick Ordoñez Re : Upper GI endoscopy procedure for Sunitha Olivera Hildar Tiago This procedure was performed on Sunday, August 15, 2021. My impressions and recommendations are as follows: Impressions : - Reflux esophagitis. Biopsied. - Erythematous mucosa in the greater curvature and antrum. Biopsied. - Mucosal variant in the duodenum. Biopsied. Recommendations : - Discharge patient to home. - Resume previous diet. - Continue present medications. - Telephone my office for pathology results in 1 week. My findings are described in the full procedure note, which is enclosed. If I can be of further assistance, please feel free to contact me at Doctor phone number(s): Work: . Sincerely, Gilles Jules MD 08/15/2021 11:37:03 AM This report has been signed electronically.
[2021-08-15 12:10] VITALS: BP 120/60; BP 137/50; PULSE 89; RESP 16; TEMP 36.6; O2SAT 94
--- NOTE | 2021-08-15 12:11 | OP.COLON_ITS ---
Patient Name: Sunitha Olivera Procedure Date: 08/15/2021 11:32 AM Date of : 1940 Age: 81 Procedure: Colonoscopy Indications: Iron deficiency anemia secondary to chronic blood loss Providers: Gilles Jules MD Referring MD: Nick Ordoñez Medicines: See the Anesthesia note for documentation of the administered medications Patient Profile: Last Colonoscopy: 2008. Complications: No immediate complications. Procedure: Pre-Anesthesia Assessment: - Prior to the procedure, a History and Physical was performed, and patient medications and allergies were reviewed. The patient's tolerance of previous anesthesia was also reviewed. The risks and benefits of the procedure and the sedation options and risks were discussed with the patient. All questions were answered, and informed consent was obtained. Prior Anticoagulants: The patient has taken no previous anticoagulant or antiplatelet agents. ASA Grade Assessment: III - A patient with severe systemic disease. After reviewing the risks and benefits, the patient was deemed in satisfactory condition to undergo the procedure. After I obtained informed consent, the scope was passed under direct vision. Throughout the procedure, the patient's blood pressure, pulse, and oxygen saturations were monitored continuously. The colonoscope was introduced through the anus and advanced to the cecum, identified by appendiceal orifice and ileocecal valve. The colonoscopy was performed without difficulty. The patient tolerated the procedure well. The quality of the bowel preparation was fair. The ileocecal valve and the appendiceal orifice were photographed. Scope In: 11:39:45 AM Scope Withdrawal Time 0 hours 19 minutes 2 seconds Scope Out: 12:04:13 PM Total Procedure Duration Time 0 hours 24 minutes 28 seconds Findings: The digital rectal exam findings include non-thrombosed external hemorrhoids, non-thrombosed internal hemorrhoids and internal hemorrhoids that prolapse with straining, but spontaneously regress to the resting position (Grade II). A 9 mm polyp was found in the proximal transverse colon. The polyp was sessile. The polyp was removed with a hot snare. Resection and retrieval were complete. To prevent bleeding post-intervention, one hemostatic clip was successfully placed. There was no bleeding at the end of the procedure. A 6 mm polyp was found in the proximal descending colon. The polyp was sessile. The polyp was removed with a hot snare. Resection and retrieval were complete. A 7 mm polyp was found in the proximal sigmoid colon. The polyp was sessile. The polyp was removed with a hot snare. Resection and retrieval were complete. A 9 mm polyp was found in the rectum. The polyp was sessile. The polyp was removed with a hot snare. Resection and retrieval were complete. Multiple diverticula were found in the sigmoid colon and descending colon. Impression: - Preparation of the colon was fair. - Non-thrombosed external hemorrhoids, non-thrombosed internal hemorrhoids and internal hemorrhoids that prolapse with straining, but spontaneously regress to the resting position (Grade II) found on digital rectal exam. - One 9 mm polyp in the proximal transverse colon, removed with a hot snare. Resected and retrieved. Clip was placed. - One 6 mm polyp in the proximal descending colon, removed with a hot snare. Resected and retrieved. - One 7 mm polyp in the proximal sigmoid colon, removed with a hot snare. Resected and retrieved. - One 9 mm polyp in the rectum, removed with a hot snare. Resected and retrieved. - Diverticulosis in the sigmoid colon and in the descending colon. Recommendation: - Discharge patient to home. - Resume previous diet. - Continue present medications. - Repeat colonoscopy in 5 years for surveillance based on pathology results. - Telephone my office for pathology results in 1 week. Procedure Code(s): --- Professional --- 01718, Colonoscopy, flexible; with removal of tumor(s), polyp(s), or other lesion(s) by snare technique Diagnosis Code(s): --- Professional --- K64.1, Second degree hemorrhoids K64.4, Residual hemorrhoidal skin tags D12.3, Benign neoplasm of transverse colon (hepatic flexure or splenic flexure) D12.4, Benign neoplasm of descending colon D12.5, Benign neoplasm of sigmoid colon K62.1, Rectal polyp D50.0, Iron deficiency anemia secondary to blood loss (chronic) K57.30, Diverticulosis of large intestine without perforation or abscess without bleeding CPT copyright 2017 [employer]. All rights reserved. The codes documented in this report are preliminary and upon telecommunications specialist review may be revised to meet current compliance requirements. Gilles Jules MD 08/15/2021 12:11:01 PM This report has been signed electronically. Number of Addenda: 0 Note Initiated On: 08/15/2021 11:32 AM
--- NOTE | 2021-08-15 12:12 | OP.CCLET_ITS ---
08/15/2021 Nick Ordoñez Re : Colonoscopy procedure for Sunitha Olivera Hildar Tiago This procedure was performed on Sunday, August 15, 2021. My impressions and recommendations are as follows: Impressions : - Preparation of the colon was fair. - Non-thrombosed external hemorrhoids, non-thrombosed internal hemorrhoids and internal hemorrhoids that prolapse with straining, but spontaneously regress to the resting position (Grade II) found on digital rectal exam. - One 9 mm polyp in the proximal transverse colon, removed with a hot snare. Resected and retrieved. Clip was placed. - One 6 mm polyp in the proximal descending colon, removed with a hot snare. Resected and retrieved. - One 7 mm polyp in the proximal sigmoid colon, removed with a hot snare. Resected and retrieved. - One 9 mm polyp in the rectum, removed with a hot snare. Resected and retrieved. - Diverticulosis in the sigmoid colon and in the descending colon. Recommendations : - Discharge patient to home. - Resume previous diet. - Continue present medications. - Repeat colonoscopy in 5 years for surveillance based on pathology results. - Telephone my office for pathology results in 1 week. My findings are described in the full procedure note, which is enclosed. If I can be of further assistance, please feel free to contact me at Doctor phone number(s): Work: . Sincerely, Gilles Jules MD 08/15/2021 12:11:01 PM This report has been signed electronically.
[2021-08-15 12:15] VITALS: BP 115/49; BP 137/50; PULSE 86; RESP 15; O2SAT 93
[2021-08-15 12:20] VITALS: BP 135/48; BP 137/50; PULSE 90; RESP 15; O2SAT 92
[2021-08-15 12:25] VITALS: BP 133/55; BP 137/50; PULSE 89; RESP 16; TEMP 36.8; O2SAT 94
[2021-08-15 12:45] VITALS: BP 137/50
[2021-08-15 13:05] LABS: Bedside Glucose 126 mg/dL (74-106)
--- NOTE | 2021-08-15 14:11 | SUR.PHASEII ---
1411 telephoned assisted living nurse. instructed for pt to hold baby aspirin until tomorrow per dr vera. also pt had clip placed. told nurse pt is not to have a mri for 30 days. nurse verbalized understanding.
== END 2021-08-15 23:59 | disposition home or self-care (01) ==
LOC: EN 09:43 → AC 09:45
PROVIDERS: PCP Internal Medicine; Referring Provider Internal Medicine; Visit Provider Surgery
PROC: 0DJD8ZZ Inspection of Lower Intestinal Tract, Via Natural or Artificial Opening Endoscopic (ICD-10-PCS; CPT 45378; principal; 2021-08-15 10:55)
DX: D12.5 Benign neoplasm of sigmoid colon (principal); E11.22 Type 2 diabetes mellitus with diabetic chronic kidney disease; N18.5 Chronic kidney disease, stage 5; Z79.4 Long term (current) use of insulin; I12.9 Hypertensive chronic kidney disease with stage 1 through stage 4 chronic kidney disease, or unspecified chronic kidney disease; K57.30 Diverticulosis of large intestine without perforation or abscess without bleeding; D12.3 Benign neoplasm of transverse colon; D12.8 Benign neoplasm of rectum; K31.89 Other diseases of stomach and duodenum; K29.50 Unspecified chronic gastritis without bleeding; K21.00 Gastro-esophageal reflux disease with esophagitis, without bleeding; K64.4 Residual hemorrhoidal skin tags; E78.00 Pure hypercholesterolemia, unspecified; D64.9 Anemia, unspecified; K64.1 Second degree hemorrhoids; I25.2 Old myocardial infarction; F32.A Depression, unspecified; M19.90 Unspecified osteoarthritis, unspecified site; Z87.891 Personal history of nicotine dependence; Z79.82 Long term (current) use of aspirin; Z99.81 Dependence on supplemental oxygen; Z86.73 Personal history of transient ischemic attack (TIA), and cerebral infarction without residual deficits; Z95.0 Presence of cardiac pacemaker; Z79.899 Other long term (current) drug therapy
CPT/HCPCS: 45385; 43239; 82962; 87426; 88305; 88313; 88342; J7040; J7120; J2405

== ENCOUNTER 2021-09-03 05:45 | Day surgery (SDC) | payer MEDICARE, OTHER, SELFPAY ==
[2021-09-03] VITALS (14 sets, daily range): BP systolic 136–157; BP diastolic 52–78; PULSE 75–88; RESP 16–20; TEMP 36.4–37.3; O2SAT 94–100; BMI 27.2
[2021-09-03] MEDS: 0.9% Normal Saline 1,000 ML 15 ML IV (06:18)
--- NOTE | 2021-09-03 06:53 | HP.PCM_ITS ---
History and Physical Date of Admission: 09/03/21 Allergies atorvastatin [From Lipitor] Allergy (Mild, Verified 08/04/21 12:25) Other Penicillins Allergy (Mild, Verified 08/04/21 12:25) Rash sacubitril [From Entresto] Allergy (Mild, Verified 08/04/21 12:25) Other Sulfa (Sulfonamide Antibiotics) Allergy (Mild, Verified 08/04/21 12:25) Vomiting valsartan [From Entresto] Allergy (Mild, Verified 08/04/21 12:25) Other Medications allopurinol 100 mg tablet 100 mg PO DAILY 06/16/21 [History Confirmed 08/04/21] aspirin 81 mg tablet,delayed release 81 mg PO QODAY 06/16/21 [History Confirmed 08/04/21] citalopram 20 mg tablet 20 mg PO DAILY 06/16/21 [History Confirmed 08/04/21] ergocalciferol (vitamin D2) 1,250 mcg (50,000 unit) capsule 50,000 unit PO WE 06/16/21 [History Confirmed 08/04/21] gabapentin 300 mg capsule 300 mg PO QHS 06/16/21 [History Confirmed 08/04/21] hydralazine 50 mg tablet 50 mg PO TID 06/16/21 [History Confirmed 08/04/21] insulin glargine 100 unit/mL subcutaneous solution 20 unit SUBCUT QHS 06/16/21 [History Confirmed 08/04/21] isosorbide mononitrate 60 mg tablet,extended release 24 hr 60 mg PO DAILY 06/16/21 [History Confirmed 08/04/21] loperamide 2 mg capsule 2 mg PO PRN PRN 06/16/21 [History Confirmed 08/04/21] melatonin 10 mg capsule 10 mg PO HS 06/16/21 [History Confirmed 08/04/21] metoprolol succinate 50 mg tablet,extended release 24 hr 50 mg PO 0800 06/16/21 [History Confirmed 08/04/21] omeprazole 20 mg capsule,delayed release 20 mg PO 0800 06/16/21 [History Confirmed 08/04/21] tramadol 50 mg tablet 50 mg PO QHS 06/16/21 [History Confirmed 08/04/21] vitamin B complex-vitamin C-folic acid 0.8 mg tablet 1 tab PO DAILY 06/16/21 [History Confirmed 08/04/21] Airborne Gummy 1 tab PO 0800 06/19/21 [History Confirmed 08/04/21] [place] Caps 1 cap PO 0800 06/19/21 [History Confirmed 08/04/21] acetaminophen 325 mg PO BID 06/19/21 [History Confirmed 08/04/21] amlodipine [Norvasc] 5 mg PO DAILY 06/19/21 [History Confirmed 08/04/21] ascorbic acid (vitamin C) [Vitamin C] 500 mg PO TID 06/19/21 [History Confirmed 08/04/21] insulin lispro 5 unit SUBCUT TID 06/19/21 [History Confirmed 08/04/21] magnesium 250 mg PO BID 06/19/21 [History Confirmed 08/04/21] rosuvastatin 40 mg PO QHS 06/19/21 [History Confirmed 08/04/21] Is last menstrual period known: No Post menopausal: Yes Patient : No PFSH Medical History Anemia Breast cancer Cancer Cardiology follow-up encounter Cellulitis COPD (chronic obstructive pulmonary disease) Depression End stage renal disease Excessive bleeding Former smoker Gastric reflux Gout Heart disease High cholesterol History of CHF (congestive heart failure) History of edema History of heart attack History of renal dialysis History of stress test HTN (hypertension) Insulin dependent diabetes mellitus Leg cramps TIA (transient ischemic attack) Walker as ambulation aid Wears dentures Wears glasses Surgical History History of ankle surgery History of arteriovenostomy for renal dialysis (~06/2021) History of cataract extraction History of colonoscopy History of eye surgery History of open heart surgery S/P lumpectomy, right breast Status post replacement of right shoulder joint Social History Smoking Status: Former smoker alcohol intake: never On June 25, 2021 I created a stage I left extremity brachial to basilic arteriovenous hemodialysis fistula. Unfortunately she has been detected to have a anemia as severe as 6.1 with hematocrit of 20.8 on July 14, 2021. Etiology not clear. She was scheduled for a previous office appointment with me and failed to show. She is now rescheduled for an appointment to discuss her anemia and treatment plans prior to trying to proceed with stage II transposition. In addition to her other chronic medications she is on aspirin therapy 81 mg daily. She is on omeprazole 20 mg daily. She does take routine tramadol. She has required 2 unit blood transfusion. In addition to this apparently just recently she started up at home she states she turned it for then fell onto her right hip. She lives in assisted living. She refused treatment. She states that is quite sore to touch and somewhat difficult for her to walk. She has not had imaging done of the right hip. Finally she has a stage I left upper extremity basilic vein to brachial artery arteriovenous hemodialysis fistula created for her on June 25, 2021. Long ago we were wanting to do a transposition. Because of her other medical issues particularly her anemia we have been unable to proceed. Her most recent laboratory was obtained at [facility] in [facility] on July 24, 2021 demonstrating a white blood cell count of 8.2 with hemoglobin 8.5 and hematocrit of 26.9 and a platelet count of 189,000. On August 15, 2021 I performed an upper and lower endoscopy on her. The upper endoscopy showed some reflux esophagitis some mild erythema of the stomach there was no active bleeding. Colonoscopy performed on the same day demonstrated 4 polyps, diverticulosis, hemorrhoids, but again there was no active bleeding. Pathology showed some mild gastritis. Reflux esophagitis. Tubular adenomas of the colon. H. pylori was negative. ROS General General: Yes breast cancer; No weight change, appetite, fatigue, colon cancer or weakness HEENT HEENT: Yes eye injury and eye surgery; No difficulty swallowing, swollen glands or hoarseness Endo Endocrine: Yes diabetes mellitus; No thyroid disease, thyroid cancer, Hair loss, heat intolerance or cold intolerance Skin Skin: No rash or changing moles Breast Breast: No left breast lump, right breast lump, nipple discharge, breast pain, abnormal mammogram, abnormal US or breast enlargement Musc Musculoskeletal: Yes arthritis and gout; No back problems, rheumatoid arthritis or joint pain Cardio Cardiovascular: Yes pacemaker, heart disease, high blood pressure, heart attack and heart stent; No murmur, atrial fibrillation, palpitations, shortness of breat with exertion or chest pain Psych Psychiatric: No depression, anxiety or hearing voices Resp Respiratory: No shortness of breath, No sleep apnea, No cough, No COPD, No asthma, No emphysema and No wheezing Gastro Gastrointestinal: No abdominal pain, No nausea or vomiting, Yes diarrhea, No constipation, No blood in stool, No acid reflux, No hemorrhoids, No ulcers, No gallbladder problem and No black,tarry stools Jeremias Hematologic: No blood thinners, No blood disorders, No bleeding, Yes anemia and No blood clots Neuro Neurologic: No system reviewed and no additional complaints, except as documented, No as per HPI, No abnormal gait, No abnormal hearing, No abnormal movements, No abnormal speech, No behavioral changes, No burning sensations, No confusion, No convulsions, No disequilibrium, No dizziness, No localized weakness, No frequent falls, No headache(s), No lack of coordination, No loss of vision, No memory loss, Yes numbness, No other visual disturbances, No radicular pain, No restless legs, No sensory deficit, No syncope, Yes tingling, No trem or(s), No weakness and No other Exam Const General: cooperative and no acute distress Nutritional Appearance: overweight Orientation: alert and awake [facility] Head: normal to inspection Eyes General: appearance normal, both eyes and all related structures Neck Neck: normal visual inspection Resp Effort & Inspection: normal respiratory effort Auscultation: clear to auscultation bilaterally Cardio Rate: regular rate Rhythm: regular rhythm GI Palpation: soft and no hepatosplenomegaly Skin Other: Diffuse areas of ecchymosis bilateral upper extremities Neuro General: patient alert, patient awake and patient oriented x3 Extrem Other: Tender right lateral hip Left upper extremity with well-healed antecubital incision and a palpable pulse thrill and bruit within her stage I brachial to basilic arteriovenous analysis fistula Psych Appearance: grossly normal Assessment and Plan Assessment and Plan (1) Status post fall: Status: Acute (2) Acute right hip pain: Status: Acute (3) Chronic anemia: Status: Chronic (4) Chronic kidney disease, stage V: Status: Chronic Orders: Orders: Hip uni 4+ views with Pelvis Today Z91.81, M25.551 Plan - Dr. Gilles Jules MD: Complicated 81-year-old female. We have been unable to proceed with stage II transposition left upper arm basilic vein to brachial artery arteriovenous analysis fistula creation. Etiology of the patient's hemoglobin of 6.1 undetermined at this time. She denies any symptoms that correlate with GI blood loss but is difficult to know. She actually has not notified her primary care physician of the issues at hand. We ordered her most recent laboratory demonstrating an improvement in her hemoglobin to 8.5 albeit still lower than normal. A portion of this may be secondary to her chronic renal insufficiency. The patient fell just recently and has right hip pain. She has previously refused evaluation but now is having ongoing troubles walking. I recommended the patient the today we obtain right hip x-rays. She is aware that I do not manage this particular problem if an acute fracture is identified. I recommended the patient a combined esophagogastroduodenoscopy and colonoscopy with possible biopsy or polypectomy as indicated. I am recommending that we proceed with that prior to attempting stage II transposition of her left upper arm AV fistula. During that stage II procedure we would need to fully heparinized the patient. She has had an opportunity to ask and have questions answered. We will try to expedite and assist as noted. Copy:Nick Ordoñez MD and Dr Collins Jules M.D., F.A.C.S. The patient presents today for us to finally proceed with transposition of her left upper arm basilic vein to brachial artery AV fistula. She has had an opportunity ask and have questions answered. Her anemia has markedly improved now with a hemoglobin of 11. She has had an opportunity to ask and have questions answered and we will proceed as noted. Gilles Jules M.D., F.A.C.S.
[2021-09-03] MEDS: Cefazolin 2 GM in 0.9% Normal Saline 100 ML IV (07:22)
--- NOTE | 2021-09-03 07:24 | EX.PCM.DISCH ---
Discharge Instructions Procedure Fistula Diet Discharge Diet: Renal Diet Activity Discharge Activity: May Not Drive (for 2-3 days or while taking narcotic pain medications.), May Shower and May Take a Tub Bath (in 5 days.) Lifting Restrictions: 5 pounds Keep extremity elevated above heart level: - (Keep arm elevated above the heart level for 3 days.) Dressing / Incision Call your doctor if your incision/area has: Continuous Slow Oozing, Sudden Increased Bleeding (apply pressure and call your doctor.), Increased Pain/ Swelling, Increased Redness and Foul Smelling Discharge Call your doctor if you observe: Fever of 101 or Higher Suture Line Care: Avoid Pulling/Pushing and Avoid Pinching/Bending Cleanse incision/area with: Keep Dressing Clean & Dry Additional Dressing/Incision Instructions:: Change or remove dressing in one day. May protect with a gauze bandaid. Follow Up Care Please Follow Up With: Gilles Jules MD When: Call [phone] to make an appointment for suture removal and follow up in 1 week. Test Results: Test results from this visit will be discussed in further detail at your follow-up appointment, if applicable. Discharge Plan Admission Primary Reason for Your Visit: Arteriovenous hemodialysis fistula creation Attending Provider: Gilles Jules Primary Care Provider: Nick Ordoñez Discharge Orders/Prescriptions Prescriptions: New hydrocodone-acetaminophen 5-325 mg tablet 1 tab PO Q8H PRN (Reason: pain) 2 Days Qty: 5 RF: 0 Continued allopurinol 100 mg tablet 100 mg PO DAILY RF: 0 gabapentin 300 mg capsule 300 mg PO QHS RF: 0 ergocalciferol (vitamin D2) 1,250 mcg (50,000 unit) capsule 50,000 unit PO WE RF: 0 omeprazole 20 mg capsule,delayed release(DR/EC) 20 mg PO 0800 RF: 0 hydralazine 50 mg tablet 50 mg PO MOWEFR RF: 0 isosorbide mononitrate 60 mg tablet extended release 24 hr 60 mg PO DAILY RF: 0 citalopram 20 mg tablet 10 mg PO DAILY RF: 0 metoprolol succinate 50 mg tablet extended release 24 hr 50 mg PO 0800 RF: 0 tramadol 50 mg tablet 50 mg PO QHS RF: 0 loperamide 2 mg capsule 2 mg PO PRN PRN (Reason: Diarrhea) RF: 0 insulin glargine 100 unit/mL solution 20 unit subcut QHS RF: 0 melatonin 10 mg capsule 10 mg PO HS RF: 0 Cheli-Jud 0.8 mg tablet 1 tab PO DAILY RF: 0 aspirin 81 mg tablet,delayed release (DR/EC) 81 mg PO QODAY RF: 0 acetaminophen 325 mg Tablet 325 mg PO BID RF: 0 amlodipine [Norvasc] 5 mg Tablet 5 mg PO DAILY RF: 0 ascorbic acid (vitamin C) [Vitamin C] 500 mg Tablet 500 mg PO TID RF: 0 magnesium 250 mg Tablet 250 mg PO BID RF: 0 Jigar Caps 1 mg Capsule 1 cap PO 0800 RF: 0 insulin lispro 100 unit/mL Insulin Pen 5 unit SUBCUT TID RF: 0 rosuvastatin 40 mg Tablet 40 mg PO QHS RF: 0 Airborne Gummy 250-11.66 mg Tablet,Chewable 1 tab PO 0800 RF: 0 hydralazine 50 mg tablet 50 mg PO DAILY RF: 0 Referrals / Follow Up: Nick Ordoñez MD [Primary Care Provider] - Disposition Disposition (needs filled in before D/C Order can be placed): Home, Self Care
[2021-09-03 09:06] LABS: Bedside Glucose 97 mg/dL (74-106)
[2021-09-03] MEDS: Lidocaine 0.5% (50 ml) 50 ML Vial (09:18)
[2021-09-03] MEDS: Heparin Injection (Vial) 5,000 UNIT/ML VIAL 5000 UNIT (09:18)
[2021-09-03] MEDS: Bupivacaine Mpf 0.5% 30 ML VIAL (09:19)
[2021-09-03] MEDS: Lidocaine 1% (50 ml mdv) 50 ML Vial (09:20)
[2021-09-03] MEDS: Protamine Sulfate 50 MG/5 ML Vial IV (09:30)
--- NOTE | 2021-09-03 09:30 | OP.PCM_ITS ---
Problems Associated Problem List Diagnoses (1) Chronic kidney disease, stage V: Report of Operation Date of Procedure: 09/03/21 Pre-Operative Diagnosis: Need for hemodialysis vascular access having had stage I left upper remedy brachial to basilic arteriovenous into the dialysis fistula creation Post-Operative Diagnosis: Same Surgery/Procedure Performed:: Stage II left upper extremity basilic vein transposition to brachial artery arteriovenous fistula creation Description of Surgical Findings:: Timeout informed consent was obtained. 81-year-old female was taken to the operating placed on the table underwent monitored anesthesia care. Ancef was given intravenously. The left upper semisterilely prepped and draped. Throughout the procedure 1% lidocaine mixed 50-50 with 0.5% Marcaine was used as a local anesthetic. 19 cc was used. Additional issues 23 cc worth. The location of the vein was identified. Local was instilled. A longitudinal incision was made serially of the left upper extremity. The basilic vein had nicely matured it was dissected free side branches were secured with 3-0 Vicryl ligatures and hemoclips. Dissection was performed up to the shoulder. Then I measured the length of the vein and created a skin marking on the more anterior superior aspect of the left upper arm. Sharp and blunt dissection was used to identify the brachial artery. The vein was ligated distally with a running suture of 3-0 Vicryl. It had been ink marked. Local was instilled and then a 6 mm tunneler was used to create a new superficial position for the vein and it was placed through the tunneler. The vein was irrigated. The patient received 5000 units of heparin intravenously as well. Peripheral vascular clamps were placed on the brachial artery which had b een dissected free. 11 blade was used to make an arteriotomy which was extended with Miguel scissors. A end-to-side venous to arterial anastomosis was created with a running 7-0 Prolene. Prior to completion there is good antegrade retrograde flow. The anastomosis was completed with good hemostasis. There was an excellent pulse and thrill in the fistula immediately. The hand was inspected it was noted to be viable. There was good triphasic Doppler flow both the left radial and ulnar signals. Hemostasis obtained with electrocautery where indicated and hemoclips as well as 3-0 Vicryl suture. The patient received 20 mg of protamine. The wound was closed with 2 deeper layers of interrupted 3-0 Vicryl which was also used to help close the space. The skin edges were approximated running subicular 4-0 Monocryl. Steri-Strips Telfa bulky dry dressing soft roll and Oliver wrap applied. Sponge and instrument and needle counts were reported to the surgeon to be correct. Specimens none. Drains none. Blood loss 150 cc. She was taken to the recovery area in satisfactory addition without apparent complication Gilles Jules M.D., F.A.C.S. Surgeon: Gilles Jules Type of Anesthesia: Local and MAC Anesthesiologist: Sujatha Guerra
== END 2021-09-03 23:59 | disposition home or self-care (01) ==
LOC: SDC 05:48 → AC 05:48
PROVIDERS: PCP Internal Medicine; Referring Provider Surgery; Visit Provider Surgery
PROC: (CPT 36821; principal; 2021-09-03 07:15)
DX: I13.2 Hypertensive heart and chronic kidney disease with heart failure and with stage 5 chronic kidney disease, or end stage renal disease (principal); J44.9 Chronic obstructive pulmonary disease, unspecified; I50.9 Heart failure, unspecified; E11.22 Type 2 diabetes mellitus with diabetic chronic kidney disease; N18.5 Chronic kidney disease, stage 5; Z79.4 Long term (current) use of insulin; E78.00 Pure hypercholesterolemia, unspecified; M25.551 Pain in right hip; D64.9 Anemia, unspecified; M10.9 Gout, unspecified; I25.2 Old myocardial infarction; Z79.899 Other long term (current) drug therapy; Z87.891 Personal history of nicotine dependence; Z99.81 Dependence on supplemental oxygen; Z79.82 Long term (current) use of aspirin; F32.A Depression, unspecified
CPT/HCPCS: 36821; 01844; 82962; J2405